=== PATIENT | female | born 2005 | race Hispanic/Latino ===

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

== ENCOUNTER 2024-01-17 14:09 | Emergency (ER) | payer OTHER ==
[~2024-01-17] VITALS: Ht 154.9 cm; Wt 76.8 kg
[~2024-01-17 14:09] MED LIST: IBUPROFEN IB200 MG PO
[2024-01-17] MEDS ORDERED: PRENATABS RX T1 EACH (14:25)
[2024-01-17] MEDS: SODIUM CHLORIDE 0.9% 1000ML 1,000 ML IV SCH (15:24)
[2024-01-17] MEDS ORDERED: SODIUM CHLORIDE 0.9% 1000ML 1,000 ML ONE (15:25)
[2024-01-17] MEDS ORDERED: CEFTRIAXONE 1 GM VIAL ONE (15:26)
[2024-01-17 16:52] VITALS: O2SAT 100
[2024-01-17] MEDS ORDERED: ONDANSETRON ODT4 MG PO (17:55)
[2024-01-17] MEDS ORDERED: CEPHALEXIN500 MG PO (17:55)
== END 2024-01-17 18:06 | disposition home or self-care (01) ==
LOC: FSED 14:11
DX: O23.41 Unspecified infection of urinary tract in pregnancy, first trimester (principal); O21.9 Vomiting of pregnancy, unspecified; R10.30 Lower abdominal pain, unspecified; Z11.52 Encounter for screening for COVID-19
CPT/HCPCS: 0223U; 76801; 76817; 80053; 81003; 81025; 85025; 87400; 99284; J0696; J7030